=== PATIENT | male | born 1990 | race Caucasian/White ===

== ENCOUNTER 2021-12-02 08:05 | Inpatient (IN) | payer MEDICAID, OTHER ==
[~2021-12-02] VITALS: Ht 175.3 cm; Wt 104.2 kg
[2021-12-02] MEDS ORDERED: DIVA-112 PO (10:59)
[2021-12-02] MEDS ORDERED: LISI-892 PO (10:59)
[2021-12-02] MEDS ORDERED: QUET25TA PO (10:59)
[2021-12-02 11:20] LABS: BASOPHILS % (AUTO) 0.3 % (0.0-2.0); EOSINOPHILS % (AUTO) 1.4 % (1.0-6.0); HEMATOCRIT 39.4 % (41-53); HEMOGLOBIN 13.6 g/dL (13.5-17.5); LYMPHOCYTES # (AUTO) 2.4 K/uL (1.0-4.8); LYMPHOCYTES % (AUTO) 24.4 % (22.0-44.0); MEAN CORPUSCULAR HEMOGLOBIN 30.5 pg (26.0-34.0); MEAN CORPUSCULAR HGB CONC 34.4 G/dL (31.0-37.0); MEAN CORPUSCULAR VOLUME 89 fL (80-100); MONOCYTES # (AUTO) 0.9 K/uL (0.1-1.0); MONOCYTES % (AUTO) 9.1 % (2.0-9.0); NEUTROPHILS # (AUTO) 6.3 K/uL (1.8-7.7); NEUTROPHILS % (AUTO) 64.8 % (40.0-70.0); PLATELET COUNT (AUTO) 299 K/uL (150-450); RED BLOOD CELL COUNT(AUTO) 4.44 MIL/uL (4.50-5.90); RED CELL DISTRIBUTION WIDTH 13.1 % (11.5-14.5)
[2021-12-02 11:35] LABS: ANION GAP 7 mmol/L (8-16); CALCIUM, TOTAL 9.3 mg/dL (8.8-10.5); CARBON DIOXIDE 28 mmol/L (22-29); CHLORIDE 102 mmol/L (98-107); CREATININE 0.82 mg/dL (0.60-1.30); GLOMERULAR FILTR. RATE CALC > 60 mL/min (>60); GLUCOSE,RANDOM 93 mg/dL (70-110); POTASSIUM 4.8 mmol/L (3.5-5.1); SODIUM SERUM 137 mmol/L (136-145); UREA NITROGEN, BLOOD 10 mg/dL (7-18)
[2021-12-02 11:43] LABS: ALANINE AMINOTRANSFERASE 38 U/L (12-78); ALBUMIN 4.2 g/dL (3.4-5.0); ALKALINE PHOSPHATASE 75 U/L (46-116); ASPARTATE AMINOTRANSFERASE 37 U/L (15-37); BILIRUBIN,TOTAL 0.7 mg/dL (0.1-1.0); TOTAL PROTEIN, SERUM 8.6 g/dL (6.4-8.2); VALPROIC ACID < 3 mcg/mL (50-100)
[2021-12-02 14:05] LABS: COVID AG,FIA SOURCE NASOPHARYNGEAL
[2021-12-02] MEDS ORDERED: HALOPERIDOL 5 MG TABLET PO PRN (19:15)
[2021-12-02] MEDS ORDERED: LORazepam 2 MG TABLET PO PRN (19:15)
[2021-12-02] MEDS ORDERED: ZOLPIDEM TARTRATE 10 MG TABLET PO PRN (19:15)
[2021-12-02] MEDS ORDERED: DIVA-80 PO (19:19)
[2021-12-02] MEDS ORDERED: QUET100T PO (19:19)
[2021-12-02] MEDS ORDERED: ESCI10 PO (19:19)
[2021-12-02] MEDS ORDERED: GABA-1181 PO (19:19)
[2021-12-02] MEDS ORDERED: LISI-893 PO (19:19)
[2021-12-02] MEDS ORDERED: NICOTINE 14 MG/24 HOUR PATCH TD PRN (20:15)
[2021-12-02 21:21] VITALS: BP 138/64
[2021-12-02] MEDS ORDERED: PNEUMOCOCCAL VACCINE POLYVALENT 0.5 ML VIAL [PPSV23] IM. ONE (23:00)
[2021-12-02] MEDS ORDERED: INFLUENZA VIRUS VACCINE QVS 2021-22 (6MO+)/PF 60 MCG/0.5 ML SYRINGE IM. ONE (23:00)
[2021-12-03 08:00] VITALS: BP 124/74
[2021-12-03 09:13] LABS: CHOLESTEROL 165 mg/dL (131-200); HDL CHOLESTEROL 55 mg/dL (40-60); LDL CHOL (CALC.) 100 mg/dL (0-130); TRIGLYCERIDES 50 mg/dL (15-150)
[2021-12-03] MEDS: LISINOPRIL 10 MG TABLET PO SCH (10:29)
[2021-12-03 16:17] VITALS: BP 120/58
[2021-12-03] MEDS ORDERED: IBUPROFEN 400 MG TABLET PO PRN (16:30)
[2021-12-03] MEDS ORDERED: CloNIDine HCL 0.1 MG TABLET PO PRN (16:30)
[2021-12-03] MEDS ORDERED: ALBUTEROL SULFATE HFA 90 MCG/PUFF 8 GM INHALER IH PRN (16:30)
[2021-12-03] MEDS ORDERED: DOCUSATE SODIUM 100 MG CAPSULE PO PRN (16:30)
[2021-12-03] MEDS ORDERED: PETROLATUM,WHITE 28 GM JELLY TP PRN (16:30)
[2021-12-03] MEDS ORDERED: ACETAMINOPHEN 325 MG TABLET PO PRN (16:30)
[2021-12-03] MEDS ORDERED: GuaiFENesin/D-METHORPHAN [SUGAR-FREE] 200-20MG/10 ML SYRUP UDCUP PO PRN (16:30)
[2021-12-03] MEDS ORDERED: MAG HYDROX/AL HYDROX/SIMETH ES 30 ML SUSPENSION UDCUP PO PRN (16:30)
[2021-12-03] MEDS ORDERED: NICOTINE 14 MG/24 HOUR PATCH TD PRN (16:30)
[2021-12-03] MEDS ORDERED: MAGNESIUM HYDROXIDE SUSPENSION 30 ML UDCUP PO PRN (16:30)
[2021-12-03] MEDS ORDERED: LOPERAMIDE HCL 2 MG CAPSULE PO PRN (16:30)
[2021-12-03] MEDS ORDERED: ONDANSETRON HCL 4 MG TABLET PO PRN (16:30)
[2021-12-03] MEDS: ESCITALOPRAM OXALATE 10 MG TABLET PO SCH (16:39)
[2021-12-03] MEDS: GABAPENTIN 300 MG CAPSULE PO SCH (16:40)
[2021-12-03] MEDS ORDERED: GABAPENTIN 300 MG CAPSULE PO SCH (17:00)
[2021-12-03] MEDS: DIVALPROEX SODIUM 500 MG DR TABLET PO SCH (20:14)
[2021-12-03] MEDS: QUEtiapine FUMARATE 100 MG TABLET PO SCH (20:14)
[2021-12-04] MEDS: GABAPENTIN 300 MG CAPSULE PO SCH ×3 (00:52→15:55)
[2021-12-04 08:00] VITALS: BP 110/56
[2021-12-04] MEDS: LISINOPRIL 10 MG TABLET PO SCH (08:16)
[2021-12-04] MEDS: ESCITALOPRAM OXALATE 10 MG TABLET PO SCH (08:16)
[2021-12-04] MEDS ORDERED: LISINOPRIL 10 MG TABLET PO SCH (09:00)
[2021-12-04 16:46] VITALS: BP 109/60
[2021-12-04] MEDS: QUEtiapine FUMARATE 100 MG TABLET PO SCH (20:08)
[2021-12-04] MEDS: DIVALPROEX SODIUM 500 MG DR TABLET PO SCH (20:08)
[2021-12-05] MEDS: GABAPENTIN 300 MG CAPSULE PO SCH ×3 (00:02→16:11)
[2021-12-05 09:47] VITALS: BP 137/65
[2021-12-05] MEDS: ESCITALOPRAM OXALATE 10 MG TABLET PO SCH (10:42)
[2021-12-05] MEDS: LISINOPRIL 10 MG TABLET PO SCH (10:42)
[2021-12-05 16:00] VITALS: BP 126/75
[2021-12-05] MEDS: QUEtiapine FUMARATE 100 MG TABLET PO SCH (20:59)
[2021-12-05] MEDS: DIVALPROEX SODIUM 500 MG DR TABLET PO SCH (20:59)
[2021-12-06] MEDS: GABAPENTIN 300 MG CAPSULE PO SCH ×3 (00:08→15:40)
[2021-12-06 08:42] VITALS: BP 126/73
[2021-12-06] MEDS: ESCITALOPRAM OXALATE 10 MG TABLET PO SCH (08:58)
[2021-12-06] MEDS: LISINOPRIL 10 MG TABLET PO SCH (08:58)
[2021-12-06 16:43] VITALS: BP 140/76
[2021-12-06] MEDS: QUEtiapine FUMARATE 100 MG TABLET PO SCH (20:41)
[2021-12-06] MEDS: DIVALPROEX SODIUM 500 MG DR TABLET PO SCH (20:41)
[2021-12-07] MEDS: GABAPENTIN 300 MG CAPSULE PO SCH ×3 (00:08→16:00)
[2021-12-07] MEDS: ESCITALOPRAM OXALATE 10 MG TABLET PO SCH (08:47)
[2021-12-07] MEDS: LISINOPRIL 10 MG TABLET PO SCH (08:47)
[2021-12-07 09:36] VITALS: BP 126/67
[2021-12-07 16:42] VITALS: BP 141/69
== END 2021-12-07 18:45 | disposition home or self-care (01) | DRG 750 ==
LOC: EMS 08:17 → 3EC 20:35
PROVIDERS: ADMIT Psychiatry & Neurology Child & Adolescent Psychiatry; ATTEND Psychiatry & Neurology Child & Adolescent Psychiatry
DX: F25.0 Schizoaffective disorder, bipolar type (principal); R45.851 Suicidal ideations; E66.9 Obesity, unspecified; G47.00 Insomnia, unspecified; I10 Essential (primary) hypertension; F17.210 Nicotine dependence, cigarettes, uncomplicated; Z68.33 Body mass index [BMI] 33.0-33.9, adult; Z20.822 Contact with and (suspected) exposure to COVID-19; Z79.899 Other long term (current) drug therapy
CPT/HCPCS: 80053; 80061; 80164; 85025; 99285; G0480

== ENCOUNTER 2024-01-11 18:37 | Emergency (ER) | payer MEDICAID, OTHER ==
[~2024-01-11] VITALS: Ht 175.3 cm; Wt 84.1 kg
[~2024-01-11 18:37] MED LIST: DIVA500T53 PO; ESCI10 PO; GABA-1181 PO; LISI-893 PO; QUET100T PO
[2024-01-11 20:10] LABS: BASOPHILS % (AUTO) 0.5 % (0.0-2.0); EOSINOPHILS % (AUTO) 2.4 % (1.0-6.0); HEMATOCRIT 40.1 % (41-53); HEMOGLOBIN 13.3 g/dL (13.5-17.5); LYMPHOCYTES # (AUTO) 1.4 K/uL (1.0-4.8); MEAN CORPUSCULAR HEMOGLOBIN 27.7 pg (26.0-34.0); MEAN CORPUSCULAR HGB CONC 33.1 G/dL (31.0-37.0); MEAN CORPUSCULAR VOLUME 84 fL (80-100); MONOCYTES # (AUTO) 0.4 K/uL (0.1-1.0); MONOCYTES % (AUTO) 6.1 % (2.0-9.0); NEUTROPHILS # (AUTO) 4.4 K/uL (1.8-7.7); PLATELET COUNT (AUTO) 270 K/uL (150-450); RED BLOOD CELL COUNT(AUTO) 4.79 MIL/uL (4.50-5.90); RED CELL DISTRIBUTION WIDTH 15.3 % (11.5-14.5); WHITE BLOOD COUNT (AUTO) 6.4 K/uL (4.5-11.0)
[2024-01-11 20:20] LABS: ANION GAP 10 mmol/L (8-16); CALCIUM, TOTAL 9.3 mg/dL (8.8-10.5); CARBON DIOXIDE 29 mmol/L (22-29); CHLORIDE 99 mmol/L (98-107); CREATININE 0.73 mg/dL (0.60-1.30); GLOMERULAR FILTR. RATE CALC > 60 mL/min (>60); GLUCOSE,RANDOM 107 mg/dL (70-110); POTASSIUM 3.5 mmol/L (3.5-5.1); SODIUM SERUM 138 mmol/L (136-145); UREA NITROGEN, BLOOD 9 mg/dL (7-18)
[2024-01-11 20:26] LABS: ALANINE AMINOTRANSFERASE 29 U/L (12-78); ALBUMIN 3.5 g/dL (3.4-5.0); ALKALINE PHOSPHATASE 116 U/L (46-116); ASPARTATE AMINOTRANSFERASE 30 U/L (15-37); BILIRUBIN,TOTAL 0.7 mg/dL (0.1-1.0); TOTAL PROTEIN, SERUM 7.7 g/dL (6.4-8.2)
[2024-01-11 20:35] LABS: ALCOHOL, BLOOD (SERUM) < 3 mg/dL (0-10)
[2024-01-11] MEDS: OLANZapine 5 MG TABLET PO ONE (22:10)
[2024-01-12 05:21] VITALS: BP 144/101; PULSE 92; RESP 15; TEMP 99.1
== END 2024-01-12 06:10 | disposition home or self-care (01) ==
LOC: EMS 18:37
DX: F20.9 Schizophrenia, unspecified (principal); F31.9 Bipolar disorder, unspecified; I10 Essential (primary) hypertension; F17.210 Nicotine dependence, cigarettes, uncomplicated
CPT/HCPCS: 99284; 80053; 85025; 36415; G0480

== ENCOUNTER 2025-07-10 15:42 | Emergency (ER) | payer OTHER ==
[~2025-07-10] VITALS: Ht 167.6 cm; Wt 84.0 kg
[~2025-07-10 15:42] MED LIST changes: +DIVA-153 PO; -DIVA500T53 PO
[2025-07-10] MEDS: ACETAMINOPHEN 500 MG TABLET PO ONE (17:40)
[2025-07-10 21:50] VITALS: BP 143/78; PULSE 75; RESP 16; TEMP 98; O2SAT 98
== END 2025-07-10 22:30 | disposition left against medical advice (07) ==
LOC: EMS 15:42
DX: S00.83XA Contusion of other part of head, initial encounter (principal); S50.01XA Contusion of right elbow, initial encounter; F20.9 Schizophrenia, unspecified; I10 Essential (primary) hypertension; F31.9 Bipolar disorder, unspecified; F17.210 Nicotine dependence, cigarettes, uncomplicated; Z65.3 Problems related to other legal circumstances; Z79.899 Other long term (current) drug therapy; W18.39XA Other fall on same level, initial encounter; Y08.89XA Assault by other specified means, initial encounter; Y93.89 Activity, other specified; Y92.89 Other specified places as the place of occurrence of the external cause; Y99.8 Other external cause status
CPT/HCPCS: 70450; 70486; 72125; 73503; 99284

== ENCOUNTER 2025-07-26 13:04 | Emergency (ER) | payer OTHER ==
[~2025-07-26] VITALS: Ht 175.3 cm; Wt 90.9 kg
[2025-07-26 13:19] VITALS: TEMP 99.2
[2025-07-26 14:35] LABS: PLATELET COUNT (AUTO) 233 K/uL (150-450); RED BLOOD CELL COUNT(AUTO) 3.98 MIL/uL (4.50-5.90); RED CELL DISTRIBUTION WIDTH 12.5 % (11.5-14.5); WHITE BLOOD COUNT (AUTO) 6.8 K/uL (4.5-11.0)
[2025-07-26 14:42] LABS: CALCIUM, TOTAL 8.8 mg/dL (8.8-10.5); CREATININE 1.12 mg/dL (0.60-1.30); GLOMERULAR FILTR. RATE CALC > 60 mL/min (>60); GLUCOSE,RANDOM 114 mg/dL (70-110); SODIUM SERUM 135 mmol/L (136-145); UREA NITROGEN, BLOOD 15 mg/dL (7-18)
[2025-07-26 14:48] LABS: ASPARTATE AMINOTRANSFERASE 14.0 U/L (15-37); TOTAL PROTEIN, SERUM 8.3 g/dL (6.4-8.2)
[2025-07-26 14:57] LABS: BAND NEUTROPHILS % (MANUAL) 2 % (0-5); EOSINOPHILS % (MANUAL) 4 % (1-6); LYMPHOCYTES % (MANUAL) 12 % (22-44); MONOCYTES % (MANUAL) 20 % (2-9); RBC MORPHOLOGY COMMENT NORMAL RBC MORPH; SEGMENTED NEUTROPHILS % 62 % (40-70)
[2025-07-26 15:42] LABS: APPEARANCE,URINE CLEAR (CLEAR); GLUCOSE, URINE (UA) NEGATIVE (NEGATIVE); LEUKOCYTE ESTERASE ,URINE NEGATIVE (NEGATIVE); NITRATE,URINE NEGATIVE (NEGATIVE); OCCULT BLOOD,URINE NEGATIVE (NEGATIVE); SPECIFIC GRAVITIY, URINE 1.032 (1.003-1.030)
[2025-07-26] MEDS ORDERED: 0.9% SODIUM CHLORIDE 10 ML SYRINGE IVP ONE (15:43)
[2025-07-26] MEDS ORDERED: IOHEXOL 350 MG/ML 100 ML VIAL ONE (15:44)
[2025-07-26] MEDS ORDERED: SODIUM CHLORIDE 0.9% 100 ML ONE (15:44)
[2025-07-26] MEDS ORDERED: IBUP-1492 PO (15:51)
[2025-07-26 18:30] VITALS: BP 126/74; PULSE 84; RESP 16; O2SAT 98
[2025-07-26] MEDS: POLYETHYLENE GLYCOL 3350 17 GM PACKET PO ONE (18:44)
[2025-07-26] MEDS: ERYTHROMYCIN 0.5% 3.5 GM TUBE OPHTHALMIC OINTMENT OU ONE (18:44)
== END 2025-07-26 19:17 ==
LOC: EMS 13:04
DX: K59.00 Constipation, unspecified (principal); R11.2 Nausea with vomiting, unspecified; R21 Rash and other nonspecific skin eruption; H10.89 Other conjunctivitis; F20.9 Schizophrenia, unspecified; F31.9 Bipolar disorder, unspecified; I10 Essential (primary) hypertension; F17.210 Nicotine dependence, cigarettes, uncomplicated; Z79.899 Other long term (current) drug therapy
CPT/HCPCS: 99285; 74177; 71045; 80048; 80076; 81003; 83690; 85025; 85651; 86140; 36415; Q9967; J7050